=== PATIENT | male | born 1960 | race Caucasian/White ===

== ENCOUNTER 2017-10-29 16:22 | Observation (INO) | payer OTHER, MEDICARE, MEDICAID ==
[~2017-10-29] VITALS: Ht 182.9 cm; Wt 100.0 kg
[~2017-10-29 16:22] MED LIST: DEPA125T OR; DULO20 OR; OXYC-103 PO; Z.0.UNABLE TO OBTAIN
[2017-10-29 16:44] VITALS: BP 131/80; PULSE 76; RESP 16; TEMP 97.6; O2SAT 98
[2017-10-29] MEDS ORDERED: ONDANSETRON HCL 4 MG/2 ML VIAL IV PUSH ONE (16:45)
[2017-10-29] MEDS ORDERED: MORPHINE SULFATE 4 MG/ML INJ IV PUSH ONE ×2 (16:45→18:00)
[2017-10-29] MEDS ORDERED: DIPHTH/TETANUS/ACEL PERTUSSIS (BOOSTER) 0.5 ML VIAL/PFS IM ONE (16:45)
[2017-10-29] MEDS ORDERED: SODIUM CHLORIDE 0.9% FLUSH 10 ML FLUSH IVF PRN (16:45)
[2017-10-29 16:46] VITALS: O2SAT 96
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
[2017-10-29 17:32] LABS: BICARBONATE 26.8 MEQ/L (21.0-32.0); CALCIUM 8.6 MG/DL (8.5-10.1); CREATININE 2.24 MG/DL (0.60-1.30)
[2017-10-29 17:33] LABS: BASOPHIL # 0.1 TH/MM3 (0-0.2); BASOPHIL % 0.6 % (0.0-2.0); EOSINOPHIL # 0.2 TH/MM3 (0-0.4); EOSINOPHIL % 2.5 % (0.0-4.0); HEMATOCRIT 36.8 % (39.0-51.0); HEMOGLOBIN 12.6 GM/DL (13.0-17.0); LYMPH % 26.4 % (9.0-44.0); LYMPHOCYTE # 2.5 TH/MM3 (1.0-4.8); MEAN CELL VOLUME 83.5 FL (80.0-100.0); MEAN CORPUSCULAR HEMOGLOBIN 28.6 PG (27.0-34.0); MEAN CORPUSCULAR HGB CONC 34.2 % (32.0-36.0); MEAN PLATELET VOLUME 7.6 FL (7.0-11.0); MONO % 7.1 % (0.0-8.0); MONOCYTE # 0.7 TH/MM3 (0-0.9); NEUT % 63.4 % (16.0-70.0); PLATELET COUNT 407 TH/MM3 (150-450); RED BLOOD COUNT 4.41 MIL/MM3 (4.50-5.90); RED CELL DISTRIBUTION WIDTH 15.7 % (11.6-17.2); WHITE BLOOD COUNT 9.4 TH/MM3 (4.0-11.0)
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
[2017-10-29] MEDS ORDERED: methylPREDNISolone SOD SUCC 125 MG/2 ML VIAL IV PUSH ONE (18:30)
[2017-10-29 18:40] VITALS: BP 129/70; PULSE 90; RESP 18; O2SAT 97
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
[2017-10-29] MEDS ORDERED: TAMS0.4C4 PO (18:53)
[2017-10-29] MEDS ORDERED: METF1000 PO (18:53)
[2017-10-29] MEDS ORDERED: DILT30TA PO (18:53)
[2017-10-29] MEDS ORDERED: SITA1TAB2 PO (18:53)
[2017-10-29] MEDS ORDERED: DEPA500T3 PO (18:53)
[2017-10-29] MEDS ORDERED: INDO75CA3 PO (18:53)
[2017-10-29] MEDS ORDERED: GLIP5TAB8 PO (18:53)
[2017-10-29] MEDS ORDERED: GABA600T PO (18:53)
[2017-10-29] MEDS ORDERED: FURO40TA PO (18:53)
[2017-10-29] MEDS ORDERED: FENO145T2 PO (18:53)
[2017-10-29] MEDS ORDERED: BACL10TA PO (18:53)
[2017-10-29] MEDS ORDERED: DEPA500T PO (18:53)
[2017-10-29] MEDS ORDERED: ALLO300T2 PO (18:53)
[2017-10-29] MEDS ORDERED: PANT40TA3 PO (18:53)
[2017-10-29] MEDS ORDERED: DULO1CAP3 PO (18:53)
[2017-10-29] MEDS ORDERED: OXYC30TA62 PO (18:53)
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
--- NOTE | 2017-10-29 21:29 | RADRPT ---
EXAM DATE/TIME: 10/29/2017 20:41 [facility] COMPARISON: No previous studies available for comparison. INDICATIONS : Trauma. MEDICAL HISTORY : Chronic obstructive pulmonary disease. Renal disease, end stage. Diabetes. SURGICAL HISTORY : Bilateral MARIE. Left knee. Bi-lateral shoulder. ENCOUNTER: Subsequent ACUITY: 1 day PAIN SCORE: 6/10 LOCATION: Lower back. TECHNIQUE: Multiplanar multisequence MRI of the thoracic spine was performed. FINDINGS: VERTEBRA: Normal vertebral body height. Homogeneous marrow signal. ALIGNMENT: Normal. CORD: Normal position and configuration. T1-T2: Normal. T2-T3: The thecal sac has a normal diameter. No evidence of disc bulge or protrusion. T3-T4: The thecal sac has a normal diameter. No evidence of disc bulge or protrusion. T4-T5: The thecal sac has a normal diameter. No evidence of disc bulge or protrusion. T5-T6: The thecal sac has a normal diameter. No evidence of disc bulge or protrusion. T6-T7: Eccentric right posterior disc bulge with mild effacement of the anterior thecal sac. No significant central canal stenosis. No significant neural foraminal stenosis. T7-T8: Eccentric right posterior disc bulge with mild effacement the anterior thecal sac. No significant jazz tral canal or neural foraminal stenosis. T8-T9: Diffuse disc bulge effacing the anterior thecal sac with associated mild to moderate spinal canal katharina nosis. Central canal measures approximately 8 mm. No significant neural foraminal narrowing. T9-T10: Mild diffuse disc bulge with slight effacement of the anterior thecal sac. No significant neural fora isabella stenosis. T10-T11: The thecal sac has a normal diameter. No evidence of disc bulge or protrusion. T11-T12: The thecal sac has a normal diameter. No evidence of disc bulge or protrusion. T12-L1: The thecal sac has a normal diameter. No evidence of disc bulge or protrusion. CONCLUSION: 1. No evidence for acute fracture or subluxation. 2. Degenerative spondylosis of the thoracic spine most prominently at T8-9 with mild to moderate cent ral canal stenosis secondary to diffuse disc bulge. Pedro Craven MD on October 29, 2017 at 21:23 Board Certified Radiologist. This report was verified electronically.
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
[2017-10-29] MEDS ORDERED: SODIUM CHLORIDE 0.9% FLUSH 10 ML FLUSH IV FLUSH PRN (23:00)
[2017-10-29] MEDS ORDERED: ONDANSETRON HCL 4 MG/2 ML VIAL IVP PRN (23:00)
[2017-10-29] MEDS ORDERED: NALOXONE HCL 0.4 MG/ML AMP IV PUSH PRN (23:00)
[2017-10-29] MEDS ORDERED: ACETAMINOPHEN 325 MG TAB PO PRN (23:00)
[2017-10-29] MEDS ORDERED: DEXTROSE 50% IN WATER 50 ML VIAL(D50) IV PUSH PRN (23:15)
[2017-10-29] MEDS ORDERED: GLUCAGON 1 MG/ML VIAL OTHER PRN (23:15)
[2017-10-29] MEDS ORDERED: RESP: ALBUTEROL 2.5 MG/IPRATROPIUM 0.5 MG NEB (PRN) NEB (23:15)
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
[2017-10-29] MEDS ORDERED: CYCLOBENZAPRINE HCL 10 MG TAB PO PRN (23:30)
[2017-10-29] MEDS ORDERED: INSULIN DETEMIR 100 UNITS/ML VIAL SQ SCH (23:30)
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
[2017-10-29] MEDS: MORPHINE SULFATE 2 MG/ML INJ IV PUSH PRN (23:39)
[2017-10-29] MEDS: TAMSULOSIN HCL 0.4 MG CAP PO SCH (23:58)
[2017-10-29] MEDS: HEPARIN SODIUM - SQ 10,000 UNITS/ML VIAL SQ SCH (23:58)
[2017-10-30 00:08] VITALS: BP 123/77; PULSE 85; RESP 18; O2SAT 98
[2017-10-30 00:31] VITALS: BP 111/69; PULSE 85; RESP 16; TEMP 97.7; O2SAT 97
[2017-10-30] MEDS: TAMSULOSIN HCL 0.4 MG CAP PO SCH (00:49)
[2017-10-30 03:28] VITALS: O2SAT 98
[2017-10-30 05:42] LABS: AUTOMATED NEUTROPHIL # 7.5 TH/MM3 (1.8-7.7); BASOPHIL % 0.2 % (0.0-2.0); HEMATOCRIT 37.3 % (39.0-51.0); HEMOGLOBIN 12.8 GM/DL (13.0-17.0); LYMPH % 13.1 % (9.0-44.0); LYMPHOCYTE # 1.1 TH/MM3 (1.0-4.8); MEAN CELL VOLUME 84.2 FL (80.0-100.0); MEAN CORPUSCULAR HEMOGLOBIN 28.9 PG (27.0-34.0); MEAN CORPUSCULAR HGB CONC 34.3 % (32.0-36.0); MEAN PLATELET VOLUME 7.7 FL (7.0-11.0); MONO % 0.9 % (0.0-8.0); MONOCYTE # 0.1 TH/MM3 (0-0.9); NEUT % 85.8 % (16.0-70.0); PLATELET COUNT 386 TH/MM3 (150-450); RED BLOOD COUNT 4.43 MIL/MM3 (4.50-5.90); RED CELL DISTRIBUTION WIDTH 16.2 % (11.6-17.2); WHITE BLOOD COUNT 8.7 TH/MM3 (4.0-11.0)
[2017-10-30] MEDS ORDERED: OXYCODONE 40 MG PO SCH (06:00)
[2017-10-30] MEDS ORDERED: oxyCODONE HCL 40 MG CONTROLLED RELEASE TAB PO SCH (06:00)
[2017-10-30] MEDS: HEPARIN SODIUM - SQ 10,000 UNITS/ML VIAL SQ SCH (06:00)
[2017-10-30 06:15] LABS: BICARBONATE 26.2 MEQ/L (21.0-32.0); CALCIUM 9.1 MG/DL (8.5-10.1); CREATININE 1.9 MG/DL (0.60-1.30)
[2017-10-30 07:20] VITALS: BP 123/60; PULSE 67; RESP 18; TEMP 98; O2SAT 97
[2017-10-30] MEDS ORDERED: INSULIN ASPART SUPPLEMENTAL SCALE SQ SCH (08:00)
[2017-10-30] MEDS ORDERED: SODIUM CHLORIDE 0.9% FLUSH 10 ML FLUSH IV FLUSH SCH (09:00)
[2017-10-30] MEDS ORDERED: ALLOPURINOL 300 MG TAB PO SCH (09:00)
[2017-10-30] MEDS ORDERED: DULoxetine HCl DR 60 MG CAP PO SCH (09:00)
[2017-10-30] MEDS ORDERED: FUROSEMIDE 40 MG TAB PO SCH (09:00)
[2017-10-30] MEDS ORDERED: DIVALPROEX DR 500 MG TABEC PO SCH (09:00)
[2017-10-30] MEDS ORDERED: GABAPENTIN 300 MG CAP PO SCH (09:00)
[2017-10-30] MEDS ORDERED: PANTOPRAZOLE SOD 40 MG DELAYED RELEASE TAB PO SCH (09:00)
[2017-10-30] MEDS ORDERED: FENOFIBRATE 145 MG TAB PO SCH (09:00)
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
[2017-10-30] MEDS: DILTIAZEM HCL 30 MG TAB PO SCH ×2 (10:31→12:17)
[2017-10-30] MEDS: BACLOFEN 10 MG TAB PO SCH ×2 (10:31→12:17)
[2017-10-30] MEDS: MORPHINE SULFATE 2 MG/ML INJ IV PUSH PRN (11:44)
[2017-10-30 12:12] VITALS: BP 118/71; PULSE 83; RESP 18; TEMP 97.6; O2SAT 97
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
== END 2017-10-30 15:21 | disposition home or self-care (01) ==
LOC: NEPD 16:22 → NEDA 21:45 → NEPHCDU 10-30 00:14
PROVIDERS: ADMIT Family Medicine; ATTEND Family Medicine
DX: M54.5 Low back pain (principal); R53.1 Weakness; M25.562 Pain in left knee; E11.22 Type 2 diabetes mellitus with diabetic chronic kidney disease; N18.3 Chronic kidney disease, stage 3 (moderate); E11.43 Type 2 diabetes mellitus with diabetic autonomic (poly)neuropathy; K31.84 Gastroparesis; G47.33 Obstructive sleep apnea (adult) (pediatric); E78.5 Hyperlipidemia, unspecified; J44.9 Chronic obstructive pulmonary disease, unspecified; M47.816 Spondylosis without myelopathy or radiculopathy, lumbar region; M47.814 Spondylosis without myelopathy or radiculopathy, thoracic region; M43.12 Spondylolisthesis, cervical region; G89.4 Chronic pain syndrome; F32.9 Major depressive disorder, single episode, unspecified; F41.9 Anxiety disorder, unspecified; R40.2410 Glasgow coma scale score 13-15, unspecified time; Z79.899 Other long term (current) drug therapy; Z87.891 Personal history of nicotine dependence; Z96.643 Presence of artificial hip joint, bilateral; Z96.653 Presence of artificial knee joint, bilateral; Z23 Encounter for immunization; V89.2XXA Person injured in unspecified motor-vehicle accident, traffic, initial encounter; Y92.410 Unspecified street and highway as the place of occurrence of the external cause
CPT/HCPCS: 70450; 71250; 72125; 72128; 72131; 72141; 72146; 72148; 73564; 74176; 80048; 80307; 82948; 83690; 85025; 90471; 90715; 96372; 96374; 96375; 96376; 97162; 99285; G0378; G8987; G8988; J1644; J2270; J2405; J2930; L1810